=== PATIENT | male | born 1950 | race Caucasian/White ===

== ENCOUNTER 2017-08-16 05:35 | Day surgery (SDC) | payer MEDICARE, OTHER ==
[~2017-08-16] VITALS: Ht 172.7 cm; Wt 120.7 kg
[~2017-08-16 05:35] MED LIST: ALLERGY10 M1 PO; ASPIR 8181 MG PO; ELIQUIS5 MG PO; LISINOPRIL5 MG PO; NASONEX17 GM NAS; SIMVASTATIN20 MG PO; VENTOLIN HFA18 GM INH; VITAMIN C500 M5 PO
--- NOTE | 2017-08-16 08:48 | NUR ---
08/16/17 0848 Emre Vail RESPONDS TO VOICE ON ENTRY TO PACU. DENIES NAUSEA OR PAIN. FALLS ASLEEP EASILY.
[2017-08-16] MEDS ORDERED: PERCOCET 5-3251 EACH PO (09:42)
[2017-08-16] MEDS ORDERED: KEFLEX500 MG PO (09:42)
--- NOTE | 2017-08-16 09:45 | NUR ---
DOM 0920: PT IS BACK TO DS FROM PACU. PT DENIES PAIN OR NAUSEA. WATER ON BEDSIDE TABLE. CALL LIGHT IS WITHIN REACH. RN IS UNABLE TO ASSESS THE DRAIN, BUT IS ABLE TO NOTE SEROSANGUINOUS DRAINAGE ON THE GAUZE. PT EDUCATED ON DC CRITERIA. WILL REASSESS WITHIN THE HOUR.
--- NOTE | 2017-08-16 10:30 | NUR ---
PT REPORTS PRESSURE IN THE GROIN, UNABLE TO DECIDE IF IT IS FROM THE PROCEDURE OR IF HE NEEDS TO URINATE. PT IS UP OOB WITH STANDBY ASSISTANCE TO THE BATHROOM. PT HAS GREAT SUCCESS VOIDING HE REPORTS, THE PRESSURE IS RELIEVED.
--- NOTE | 2017-08-16 11:00 | NUR ---
LE 1040: PT HAS MET DC CRITERIA. PT GIVEN INSTRUCTIONS TO GET DRESSED. PT CALLED OUT FOR HELP, HE HAD REMOVED HIS OWN IV AND WAS BLEEDING ALL OVER THE PLACE. RN GOT HIM CLEANED UP AND WENT OVER DC INSTRUCTIONS. PT HAD A DIFFICULT TIME UNDERSTANDING DC INSTRUCTIONS, HE IS EDUCATED THAT EVERYTHING WE WERE GOING OVER IS IN THE FOLDER WRITTEN DOWN.
--- NOTE | 2017-08-20 12:42 | OR ---
[facility] [address], [place] [address] Signed DATE OF OPERATION: 08/16/2017 SURGEON: Sera Armstrong MD PREOPERATIVE DIAGNOSIS: Left hydrocele. POSTOPERATIVE DIAGNOSIS: Left hydrocele. NAME OF PROCEDURE: Left hydrocelectomy. ANESTHESIA: General. ESTIMATED BLOOD LOSS: 20 mL. COMPLICATIONS: None. SPECIMENS: Hydrocele sac sent to pathology for evaluation. DRAINS: Quarter-inch [place], placed in the left hemiscrotum. INDICATIONS FOR PROCEDURE: Mr. Jerez is a very pleasant 67-year-old gentleman with a history of atrial flutter, on chronic anticoagulation form of daily Eliquis, presented to my clinic a couple of months ago with complaints of progressively worsening left scrotal swelling. He underwent an ultrasound which confirmed the presence of a medium-sized left hydrocele. He had undergone multiple transscrotal aspirations of the hydrocele in the past by Dr. Rosen. He came in initially requesting aspiration of his hydrocele, however, with his active and anticoagulation, I recommended against this. After undergoing cardiac clearance, he has agreed to undergo elective left hydrocelectomy. OPERATIVE FINDINGS: 1. Examination of the external genitalia reveals an approximately baseball-sized left Electronically Signed By: SERA ARMSTRONG MD 08/20/17 1242 PATIENT NAME: DARIUSZ JEREZ OPERATIVE REPORT DATE OF : 46 PHYSICIAN: SERA ARMSTRONG MD REPORT #: [id number] REPORT IS CONFIDENTIAL AND NOT TO BE RELEASED WITHOUT AUTHORIZATION [facility] [address], [place] [address] Signed hydrocele with no obvious complicating factors. He otherwise has a normal uncircumcised phallus with a glanular meatus. His right testicle is palpable and is within normal limits. 2. Left hydrocelectomy was performed via the Jaboulay technique and a portion of the hydrocele sac was sent to pathology for evaluation. DESCRIPTION OF PROCEDURE: After informed consent was obtained, the patient was taken back to the operating room. He was transferred from the [facility] to the operating room table, where general anesthesia was induced. He was placed in the supine position and his genitalia prepped and draped in standard sterile fashion. An approximately 5 cm transverse incision was made in the left hemiscrotum and was dissected down via electrocautery and blunt dissection down to the level of the tunica vaginalis. The tunica vaginalis was then bluntly dissected away from the remainder of the scrotal sac and the entire testicle was then delivered out of the left hemiscrotum. The gubernacular attachments were then excised via electrocautery. At this point in time, I noticed a significant amount of oozing from the patient's left hydrocele sac and provided hemostatic control of a bleeder using a [id number] suture with 1-0 Vicryl. I then excised approximately 2/3rds of the hydrocele sac and place that in the specimen cup to be sent to pathology for evaluation. The remaining edges were closed with a 3-0 Vicryl suture in a continuous running fashion in a Jaboulay approach. I closely evaluated the area for any residual bleeding. I then evaluated the left scrotal sac to evaluate for any bleeders coming from the dartos fascia. Any bleeders present were cauterized using bipolar electrocautery. The left hemiscrotum was then irrigated with sterile saline solution. The left testicle was then re-inserted back in the left hemiscrotum in the appropriate orientation. A quarter-inch Jeet drain was placed in the left hemiscrotum and secured down with 0 silk. The dartos fascia was then closed in a continuous running fashion using 3-0 Vicryl. The skin was closed in a simple interrupted fashion also using 3-0 Vicryl. The area was cleaned and dried and bacitracin was applied. This was followed by fluffs and a scrotal support. The surgery was then terminated. The patient tolerated the procedure well without any complication. He will now be transferred to the postanesthesia care unit in stable condition. DISPOSITION: Mr. Jerez will be discharged to home later today in stable condition. He has been requested to return to clinic in 2 days to have his Jeet drain removed. He will then return to clinic in 2 weeks on August 30 for his first postoperative evaluation. He will be sent home today with Percocet 5/325, dispensed #30 take for pain along with Keflex 500 mg p.o. b.i.d. for a total of 7 days. Electronically Signed By: SERA ARMSTRONG MD 08/20/17 1242 PATIENT NAME: DARIUSZ JEREZ OPERATIVE REPORT DATE OF : 46 PHYSICIAN: SERA ARMSTRONG MD REPORT #: [id number] REPORT IS CONFIDENTIAL AND NOT TO BE RELEASED WITHOUT AUTHORIZATION [address] [address] Signed Sera Armstrong MD AR/MODL /[id number] Electronically Signed By: SERA ARMSTRONG MD 08/20/17 1242 PATIENT NAME: DARIUSZ JEREZ [facility] OPERATIVE REPORT DATE OF : 46 PHYSICIAN: SERA ARMSTRONG MD REPORT #: [id number] REPORT IS CONFIDENTIAL AND NOT TO BE RELEASED WITHOUT AUTHORIZATION
== END 2017-08-16 10:50 | disposition home or self-care (01) ==
LOC: DS 05:35 → OPS 05:35 → DS 06:45 → OPS 10:50
PROVIDERS: Urology
PROC: 0VB70ZZ Excision of Left Tunica Vaginalis, Open Approach (ICD-10-PCS; principal; 2017-08-16 06:45)
DX: N43.3 Hydrocele, unspecified (principal); I10 Essential (primary) hypertension; I48.92 Unspecified atrial flutter; E78.5 Hyperlipidemia, unspecified; J30.2 Other seasonal allergic rhinitis; Z79.899 Other long term (current) drug therapy
CPT/HCPCS: 00920; 88302; J0330; J0696; J2250; J2405; J2704; J2765; J3010; J7120